=== PATIENT | female | born 1965 | race Caucasian/White ===

== ENCOUNTER → 2016-07-15 | Outpatient (CLI) | payer OTHER ==
--- NOTE | 2016-07-15 15:15 | CT ---
EXAMINATION TYPE: CT brain wo con DATE OF EXAM: 07/15/2016 3:05 PM COMPARISON: CT brain January 18, 2014 HISTORY: Pt states of RUDOLPH and nose bleeds on and off for years. CT DLP: 1872.2 mGycm. Automated Exposure Control for Dose Reduction was Utilized. TECHNIQUE: CT scan of the head is performed without contrast. FINDINGS: There is no acute intracranial hemorrhage, mass effect, or midline shift identified. The ventricles and sulci are within normal limits in size. [place]itting[place]-white matter differentiation is preserv ed. The globes are intact and the visualized sinuses are clear. IMPRESSION: No acute intracranial hemorrhage, mass effect, or midline shift is seen. No significant change from prior.
== END | disposition home or self-care (01) ==
LOC: RADCTMAIN 14:43
PROVIDERS: ATTEND Family Medicine
DX: S09.90XS Unspecified injury of head, sequela (principal)
CPT/HCPCS: 70450

== ENCOUNTER → 2016-11-08 | Outpatient (CLI) | payer OTHER ==
--- NOTE | 2016-11-08 09:11 | MR ---
EXAMINATION TYPE: MR brain wo con DATE OF EXAM: 11/08/2016 9:03 AM COMPARISON: NONE HISTORY: Migraines T1-weighted sagittal, T2, FLAIR, and diffusion axial, and T2 coronal coronal views of the brain are s ubmitted. There is no evidence of acute ischemia. The ventricles, basal cisterns, and sulci overlying the conv exities are consistent with the patient's age. There is no mass effect. Craniocervical junction maintained. Sella turcica has a normal appearance. No cerebellopontine angle mass. White matter: No abnormal signal seen in the visualized white matter. IMPRESSION: 1. No acute intracranial process
== END | disposition home or self-care (01) ==
LOC: RADMRIMAIN 08:31
PROVIDERS: ATTEND Psychiatry & Neurology Neurology
DX: G43.009 Migraine without aura, not intractable, without status migrainosus (principal)
CPT/HCPCS: 70551

== ENCOUNTER → 2018-01-20 | Outpatient (CLI) | payer OTHER | END | disposition home or self-care (01) | LOC: CPPFTMAIN 11:55 | PROVIDERS: ATTEND Family Medicine | DX: J45.30 Mild persistent asthma, uncomplicated (principal) | CPT/HCPCS: 94060; 94726; 94729 ==

== ENCOUNTER → 2019-01-14 | Outpatient (CLI) | payer OTHER ==
--- NOTE | 2019-01-14 09:04 | CT ---
EXAMINATION TYPE: CT brain wo con DATE OF EXAM: 01/14/2019 COMPARISON: 07/15/2016 INDICATION: Migraine w/o aura DLP: 999.8 mGycm, Automated exposure control for dose reduction was used. CONTRAST: None CT of the brain is performed utilizing 3 mm thick sections through the posterior fossa and 3 mm thick sections through the remaining calvarium. Study is performed within 24 hours of arrival to the hosp [facility]. No abnormal hyperdensity is present to suggest an acute intracranial hemorrhage. No mass lesion is evident. No acute infarcts are evident. Ventricles and sulci are appropriate for the patient age. Paranasal sinuses and mastoid air cells within the [id number] are clear. IMPRESSIONS: 1. Normal CT Brain
== END | disposition home or self-care (01) ==
LOC: RADCTMAIN 08:03
PROVIDERS: ATTEND Psychiatry & Neurology Neurology
DX: G43.009 Migraine without aura, not intractable, without status migrainosus (principal)
CPT/HCPCS: 70450

== ENCOUNTER 2022-04-16 15:15 | Emergency (ER) | payer OTHER ==
[2022-04-16 15:26] VITALS: BP 104/68
[2022-04-16 15:33] VITALS: RESP 16
[2022-04-16 15:34] VITALS: PULSE 74; TEMP 97.8
--- NOTE | 2022-04-16 16:15 | ED ---
General Adult HPI - General Chief complaint: Recheck/Abnormal Lab/Rx Stated complaint: COVID + Time Seen by Provider: 04/16/22 15:33 Source: patient, RN notes reviewed, old records reviewed Mode of arrival: ambulatory Limitations: no limitations - History of Present Illness Initial comments: 57-year-old female presenting for evaluation. Patient is requesting doctor's note indicating that she tested positive for coronavirus and needs to quarantine for 5 days. She is currently being evicted from her apartment and requires documentation to support this. She does have a positive test from [facility] which was performed yesterday. She remains symptomatic but has no respiratory distress. - Related Data Home Medications Medication Instructions Recorded Confirmed Montelukast [Singulair] 10 mg PO DAILY 01/18/14 05/11/16 Gabapentin [Neurontin] 300 mg PO BID 10/10/15 05/11/16 methocarbamoL [Robaxin-750] 750 mg PO HS PRN 10/10/15 05/11/16 Ibuprofen [Motrin] 800 mg PO TID PRN 03/08/16 05/11/16 Hydrocodone/Acetaminophen [[place] 1 tab PO Q6HR PRN 05/11/16 05/11/16 7.5-325] Previous Rx's Medication Instructions Recorded Ciprofloxacin HCl [Cipro] 500 mg PO Q12HR #20 tablet 03/08/16 Ondansetron [Zofran ODT] 8 mg PO Q8HR PRN #12 tab 03/08/16 traMADol HCl [Ultram] 50 - 100 mg PO Q6H PRN #15 tab 03/08/16 Albuterol Inhaler [Ventolin Hfa 1 - 2 puff INHALATION Q6HR PRN #1 05/11/16 Inhaler] inhaler Promethazine 6.25MG/5Ml [Phenergan 5 ml PO Q4HR PRN #120 ml 05/11/16 Syrup] predniSONE [Deltasone] 20 mg PO BID #8 tab 05/11/16 Allergies Allergy/AdvReac Type Severity Reaction Status Date / Time influenza virus vaccine, Allergy Unknown Verified 04/16/22 15:26 specific [Influenza Virus Vacc,Specific] pneumococcal vaccine Allergy Unknown Verified 04/16/22 15:26 [Pneumococcal Vaccine] lemon AdvReac Dyspnea Verified 04/16/22 15:26 quetiapine fumarate AdvReac "PASSED Verified 04/16/22 15:26 [From Seroquel] OUT" tomato AdvReac Dyspnea Verified 04/16/22 15:26 zolpidem tartrate AdvReac "PASSED Verified 04/16/22 15:26 [From Ambien] OUT" Review of Systems ROS Statement: Those systems with pertinent positive or pertinent negative responses have been documented in the HPI. ROS Other: All systems not noted in ROS Statement are negative. Past Medical History Past Medical History: Asthma Additional Past Medical History / Comment(s): migranes History of Any Multi-Drug Resistant Organisms: None Reported Additional Past Surgical History / Comment(s): CYST REMOVED LT WRIST X 2. CERVICAL CYST REMOVED Past Anesthesia/Blood Transfusion Reactions: No Reported Reaction Past Psychological History: Anxiety Past Alcohol Use History: None Reported Past Drug Use History: None Reported - Past Family History Mother Family Medical History: No Reported History General Exam Limitations: no limitations General appearance: alert, in no apparent distress Head exam: Present: atraumatic, normocephalic Eye exam: Present: normal appearance, PERRL ENT exam: Present: normal exam, normal oropharynx Neck exam: Present: normal inspection Respiratory exam: Present: normal lung sounds bilaterally. Absent: respiratory distress Cardiovascular Exam: Present: regular rate, normal rhythm GI/Abdominal exam: Present: soft. Absent: distended, tenderness Extremities exam: Present: normal inspection, normal capillary refill. Absent: pedal edema Neurological exam: Present: alert, oriented X3, CN II-XII intact. Absent: motor sensory deficit Psychiatric exam: Present: normal affect, normal mood Skin exam: Present: warm, dry, intact. Absent: cyanosis, diaphoretic Course Vital Signs 04/16/22 04/16/22 04/16/22 15:22 15:31 15:33 Temperature 97.0 F L 97.8 F Pulse Rate 66 74 Respiratory 18 16 16 Rate Blood Pressure 104/68 O2 Sat by Pulse 99 Oximetry Medical Decision Making - Medical Decision Making 57-year-old female requiring a note indicating that she tested positive for coronavirus. She does have documentation to support that her coronavirus test was performed yesterday and she requires to quarantine. She should quarantine for 5 days and follow-up with the primary care physician. - Lab Data Lab Results 04/16/22 Range/Units 15:39 Coronavirus (PCR) Not Detected (Not Detectd) Disposition Clinical Impression: COVID-19 Disposition: HOME SELF-CARE Condition: Fair Instructions (If sedation given, give patient instructions): COVID-19 (Coronavirus Disease 2019) (ED) Additional Instructions: Patient tested positive for coronavirus on 04/15. She needs to quarantine for 5 days. Is patient prescribed a controlled substance at d/c from ED?: No Referrals: None,Stated [Primary Care Provider] - 1-2 days Ariel Rashid MD [REFERRING] - 1-2 days Time of Disposition: 16:14
== END 2022-04-16 16:22 | disposition home or self-care (01) ==
LOC: EC 15:15
DX: U07.1 COVID-19 (principal); J45.909 Unspecified asthma, uncomplicated; F41.9 Anxiety disorder, unspecified; Z88.7 Allergy status to serum and vaccine; Z91.018 Allergy to other foods; Z88.8 Allergy status to other drugs, medicaments and biological substances; Z79.899 Other long term (current) drug therapy
CPT/HCPCS: 87635; 99283

== ENCOUNTER → 2023-08-09 | Outpatient (CLI) | payer OTHER ==
--- NOTE | 2023-08-09 11:34 | MR ---
MRI brain without contrast. HISTORY: Headaches and syncope COMPARISON: None. TECHNIQUE: Multiecho multiplanar images the brain were obtained without contrast. FINDINGS: On the T1-weighted sagittal images, the midline structures including the craniovertebral junction rel ationships are normal. The ventricles, basal cisterns and sulci over the convexities are within normal limits and there is n o mass effect or shift of the midline structures. No abnormal signal intensity is seen throughout the brain parenchyma. Based on the diffusion-weighted images, there is no diffusion restriction or acute ischemic event. The posterior fossa including the brainstem, fourth ventricle and cerebellar pontine angles appear no rmal. The intraorbital contents appear normal and symmetric. Visualized paranasal sinuses and mastoid air c ells are well aerated. IMPRESSION: No significant abnormality seen.
== END | disposition home or self-care (01) ==
LOC: RADMRIMAIN 09:30
PROVIDERS: ATTEND Psychiatry & Neurology Neurology
DX: I63.9 Cerebral infarction, unspecified (principal); R51.9 Headache, unspecified; R55 Syncope and collapse
CPT/HCPCS: 70551